=== PATIENT | female | born 1965 | race Caucasian/White ===

== ENCOUNTER → 2016-09-15 07:29 | Day surgery (SDC) | payer OTHER ==
[~2016-09-15 07:29] MED LIST: Buffered Lidocaine 1% SYR 3ML* 3 ML/SYR SYRINGE INTRADERM ONE; Dexamethasone IV* 4 MG/ML 1 ML (4 MG) ONE; Famotidine IV* 10 MG/ML 2 ML (20 mg) IV ONE; Famotidine IV* 10 MG/ML 2 ML (20 mg) ONE; HYDROcodone/ACET. 7.5/325 LIQ* 15 ML UDC ONE; HYDROmorphone INJ* 1 MG/ML CARPUJECT SYRINGE ONE; Lidocaine 2% MPF* 2 ML VIAL ONE; Metoclopramide TAB* 10 MG ONE; Metoclopramide TAB* 10 MG PO ONE; Midazolam* 1 MG/ML 5 ML VIAL (5 MG) ONE; Ondansetron INJ* 2 MG/ML VIAL IV PRN; Ondansetron INJ* 2 MG/ML VIAL ONE; Propofol* 10 MG/ML 20 ML BTL IV PUSH ONE; fentaNYL* 50 MCG/ML 2 ML VIAL (100 MCG VIAL) IV PRN; fentaNYL* 50 MCG/ML 2 ML VIAL (100 MCG VIAL) ONE
[2016-09-15] MEDS: HYDROmorphone INJ* 1 MG/ML CARPUJECT SYRINGE IV PRN ×2 (11:09→11:27)
[2016-09-15 13:39] VITALS: BP 149/74
--- NOTE | 2016-09-15 13:49 | OP ---
DATE OF OPERATION: 09/15/16 - [facility] DATE OF : 63 SURGEON: Jacob Huntley MD ANESTHESIOLOGIST: Arian Berman MD ANESTHESIA: General PRE-OP DIAGNOSIS: Chronic tonsillitis. POST-OP DIAGNOSIS: Chronic tonsillitis. OPERATIVE PROCEDURE: Tonsillectomy. INDICATIONS: This is a 50-year-old female with history of recurring tonsillitis at least 5 or 6 bouts of chronic tonsillitis each year for many years. She elected for surgical therapy. Risks and complications were discussed with her. DESCRIPTION OF PROCEDURE: The patient was taken to the operating room, general anesthetic was given, and the patient intubated. Tongue, mandible, and soft palate were retracted. Bipolar dissection of the tonsils was carried out. Once hemostasis was obtained, the patient was awakened and sent to the recovery room in stable condition. Instrument and sponge counts correct. Blood loss minimal. [id number] #: [id number]
== END | disposition home or self-care (01) ==
LOC: OR 07:29
PROVIDERS: ATTEND Otolaryngology
DX: J35.01 Chronic tonsillitis (principal); I10 Essential (primary) hypertension
CPT/HCPCS: 88304; A9270-GY; J1100; J1170; J2250; J2405; J2704; J3010